=== PATIENT | female | born 1960 | race Caucasian/White ===

== ENCOUNTER → 2016-09-06 | Outpatient (CLI) | payer OTHER | END | disposition home or self-care (01) | LOC: RD 09:31 | PROC: BW40ZZZ Ultrasonography of Abdomen (ICD-10-PCS; principal; 2016-09-06) | DX: R10.11 Right upper quadrant pain (principal) | CPT/HCPCS: Q0092 ==

== ENCOUNTER → 2016-11-29 | Outpatient (CLI) | payer OTHER ==
[2016-11-29 09:58] LABS: ALKALINE PHOSPHATASE 64 U/L (46-116); ALT/SGPT 15 U/L (14-59); AST/SGOT 14 U/L (15-37); BILIRUBIN TOTAL 0.6 mg/dL (0.20-1.00); CALCIUM 8.8 mg/dL (8.5-10.1); CARBON DIOXIDE 29.9 mmol/L (21-32); CHLORIDE SERUM 105 mmol/L (98-107); CREATININE SERUM 0.7 mg/dL (0.6-1.0); GFR1 > 60 mL/min; GLUCOSE SERUM 102 mg/dL (74-106); POTASSIUM SERUM 4.6 mmol/L (3.5-5.1); SODIUM SERUM 141 mmol/L (136-145); TOTAL PROTEIN, SERUM 7.5 g/dL (6.4-8.2); TRIGLYCERIDES 78 mg/dL (<150)
[2016-11-29 10:00] LABS: ALBUMIN 3.3 g/dL (3.4-5.0); CHOLESTEROL 217 mg/dL (<200); CHOLESTEROL/HDL RATIO 2.9; HDL CHOLESTEROL 75 mg/dL (40-60)
[2016-11-29 10:10] LABS: FREE T4 0.98 ng/dL (0.76-1.46); FREE THYROXINE INDEX 2.9 ug/dL (1.4-4.5); T4(THYROXINE) 8.2 ug/dL (4.7-13.3)
[2016-11-29 10:31] LABS: BASOPHIL % 0.5 % (0-2); PLATELET COUNT 290 x10^3mcL (130-400); RED CELL DISTRIBUTION WIDTH 15.5 % (11.5-14.5)
[2016-11-29 10:32] LABS: T3 TOTAL 0.96 ng/mL
== END | disposition home or self-care (01) ==
LOC: LB 09:25
PROVIDERS: Family Medicine
DX: R42 Dizziness and giddiness (principal)
CPT/HCPCS: 84439

== ENCOUNTER → 2017-02-04 | Outpatient (CLI) | payer OTHER | END | disposition home or self-care (01) | LOC: RD 16:01 | DX: M25.561 Pain in right knee (principal) ==

== ENCOUNTER → 2017-05-13 | Outpatient (CLI) | payer OTHER ==
[2017-05-13 07:56] LABS: PLATELET COUNT 298 x10^3mcL (130-400)
[2017-05-13 08:06] LABS: RED CELL DISTRIBUTION WIDTH 15.2 % (11.5-14.5)
[2017-05-13 08:23] LABS: FREE T4 0.97 ng/dL (0.76-1.46); FREE THYROXINE INDEX 2.7 ug/dL (1.4-4.5); T4(THYROXINE) 7.3 ug/dL (4.7-13.3)
[2017-05-13 08:41] LABS: T3 TOTAL 1.09 ng/mL
[2017-05-13 09:27] LABS: ALBUMIN 3.4 g/dL (3.4-5.0); ALKALINE PHOSPHATASE 57 U/L (46-116); ALT/SGPT 19 U/L (14-59); AST/SGOT 17 U/L (15-37); BILIRUBIN TOTAL 0.5 mg/dL (0.20-1.00); CALCIUM 8.8 mg/dL (8.5-10.1); CARBON DIOXIDE 25.3 mmol/L (21-32); CHLORIDE SERUM 101 mmol/L (98-107); CREATININE SERUM 0.8 mg/dL (0.6-1.0); GFR1 > 60 mL/min; GLUCOSE SERUM 108 mg/dL (74-106); MAGNESIUM 2.2 mg/dL (1.8-2.4); POTASSIUM SERUM 4.2 mmol/L (3.5-5.1); SODIUM SERUM 141 mmol/L (136-145); TOTAL PROTEIN, SERUM 7.4 g/dL (6.4-8.2); TRIGLYCERIDES 96 mg/dL (<150)
[2017-05-13 09:32] LABS: CHOLESTEROL 239 mg/dL (<200); HDL CHOLESTEROL 80 mg/dL (40-60)
== END | disposition home or self-care (01) ==
LOC: LB 07:25
DX: I10 Essential (primary) hypertension (principal); E78.5 Hyperlipidemia, unspecified; J45.909 Unspecified asthma, uncomplicated
CPT/HCPCS: 84439